=== PATIENT | male | born 1965 | race African-American/Black ===

== ENCOUNTER 2020-09-28 23:14 | Emergency (ER) | payer MEDICAID, SELFPAY ==
--- NOTE | 2020-09-28 23:23 | PC.NURSE ---
Pt became upset due to hospital policy of covid visitor restriction and due to the symptomology of his complaint, no visitors would be allowed to wait. laboratory asst aware. This story writer offered to take the phone number of manager clinic for chart. Both individuals refused.
[2020-09-28 23:25] VITALS: BP 123/58; PULSE 96; RESP 22; TEMP 37.5; O2SAT 98; BMI 28.4
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
--- NOTE | 2020-09-28 23:42 | XR_ITS ---
EXAMINATION: XR CHEST CLINICAL INFORMATION: Cough COMPARISON: 02/28/2011 TECHNIQUE: Frontal view of the chest was obtained. FINDINGS: The lungs are well expanded. Bronchial wall thickening. Patchy opacity at the left base. No pleural effusion or pneumothorax. The cardiomediastinal silhouette is within normal limits. XR/XR chest 1V IMPRESSION: Bronchial wall thickening can be seen with a small airways process such as asthma or atypical/viral infection. Left basilar opacity could represent superimposed atelectasis or pneumonia.
[2020-09-29] MEDS: predniSONE 20 MG TABLET 60 MG PO (00:24)
[2020-09-29] MEDS: Benzonatate 100 MG CAPSULE PO (00:24)
[2020-09-29] MEDS: Oxymetazoline HCl 0.05 % Nasal 15 ML SPRAY 2 SPRAY NOSTRIL-B (00:26)
--- NOTE | 2020-09-29 00:40 | PC.NURSE ---
pt was never in any respiratory distress, speaking in complete sentences. pt argumentative as to why his girlfriend was not allowed in treatment area. pt refused covid test.
== END 2020-09-29 01:01 | disposition home or self-care (01) ==
PROVIDERS: Emergency Provider Emergency Medicine; PCP Nurse Practitioner Primary Care
DX: J18.9 Pneumonia, unspecified organism (principal); B34.9 Viral infection, unspecified; J00 Acute nasopharyngitis [common cold]; J45.909 Unspecified asthma, uncomplicated; Z79.899 Other long term (current) drug therapy; Z87.891 Personal history of nicotine dependence
CPT/HCPCS: 71045; 99283

== ENCOUNTER → 2020-11-02 13:33 | Outpatient (BNVA) | payer MEDICAID, SELFPAY | PROVIDERS: PCP Nurse Practitioner Primary Care; Visit Provider Internal Medicine Pulmonary Disease | DX: J45.40 Moderate persistent asthma, uncomplicated (principal); Z88.0 Allergy status to penicillin; Z87.891 Personal history of nicotine dependence; Z91.09 Other allergy status, other than to drugs and biological substances | CPT/HCPCS: 99212 ==

== ENCOUNTER → 2021-03-27 15:51 | Outpatient (BNVA) | payer MEDICAID, SELFPAY | PROVIDERS: PCP Nurse Practitioner Primary Care; Visit Provider Internal Medicine Pulmonary Disease | DX: J45.40 Moderate persistent asthma, uncomplicated (principal); Z91.09 Other allergy status, other than to drugs and biological substances | CPT/HCPCS: 99212 ==

== ENCOUNTER 2024-11-23 16:44 | Outpatient (REF) | payer MEDICAID, SELFPAY ==
[2024-11-23 17:34] LABS: Creatinine Urine 403.64 mg/dL; Microalbum/Creatinine Ratio Ur 3.4 ug/mg cr (<30)
--- OUTSIDE RECORDS SUMMARY | 2024-11-23 19:48 | XMS_ITS | Encounter Summary ---
Author Organization [employer] Address [address] [facility] [address] [place] [address] Care Team Providers Care Gleason Gear Generator Name Role Phone Chelo Cast Primary Care Provider [phone] Encounter Details Date Type Department Care Team (Latest Contact Info) Description 11/23/2024 Travel Social History Tobacco Use Types Packs/Day Years Used Date Smoking Tobacco: Never Smokeless Tobacco: Never Alcohol Use Standard Drinks/Week Comments Not Currently 0 (1 standard drink = 0.6 oz pur e alcohol) Alcohol Answer Date Recorded Frequency of Alcohol Consumption Not on file 11/13/2023 Average Number of Drinks Not on file 024 Frequency of Binge Drinking Not on file 10/29 Score 0 11/13/2023 Depression Answer Date Recorded Patient Health Questionnaire-9 Score 3 11/23/2024 Patient Health Questionnaire-9 Score 3 11/23/2024 Last PHQ-9: Questionnaire Data Not on file 0 11/23/2024 Housing Stability Answer Date Recorded What is your housing situation today? I have scott mckeon 11/09/[address] you li ve. Do you have problems with any of the following? None of the above 11/09/2024 Food Insecurity Answer Date Recorded Within the past 12 months, y ou worried that your food would run out before you got money to buy more: Never True 11/09/2024 Within the past 12 months,th e food you bought just didn't last and you didn't have enough money to get more: Never True 08/2025 Transportation Answer Date Recorded In the past 12 months, has l ack of transportation kept you from medical appts, meetings, work or from getting things needed for daily living? No 11/09/2024 Utilities Answer Date Recorded In the past 12 months, has t he electric, gas, oil or water company threatened to shut off services in your home? No 11/09/2024 Depression Answer Date Recorded Patient Health Questionnaire-2 Score 0 11/23/2024 Internet Access Answer Date Recorded Internet Access Q1 Yes 11/09/2024 Internet Access Q2 Not on file 11/09/2024 Sex and Gender Information Value Date Recorded Sex Assigned at Male 07/28/2022 10:21 AM EDT Legal Sex Male 10:21 AM EDT Gender Identity Male 07/28/2022 10:21 AM EDT Sexual Orientation Choose not to disclose 2021 10:21 AM EDT documented as of this encounter Plan of Treatment Not on file documented as of this encounter Visit Diagnoses Not on filedocumented in this encounter Additional Health Concerns Assessment Noted Time PHQ-9 Depression Total Score: 3 11/23/19 25 2:39 PM EST documented as of this encounter Care Teams Gleason Gear Generator Relationship Specialty Start Date End Date Chelo Cast ANP [address] [place] [phone] PCP - General Family Medicine 02/08/20 documented as of this encounter
--- OUTSIDE RECORDS SUMMARY | 2024-11-23 19:48 | XMS_ITS | Encounter Summary ---
Author Organization [employer] Address [address] [place] [address] [address] [place] [address] Care Team Providers Care Police Worker Name Role Phone Chelo Cast Primary Care Provider [phone] Encounter Details Date Type Department Care Team ([facility] st Contact Info) Description 01/07/2023 Orders Only [facility] [address] [place] [address] Jayshree [place] LPN Social History Tobacco Use Types Packs/Day Years Used Date Smoking Tobacco: Never Assessed Sex and Gender Information Value Date Recorded Sex Assigned at Male 07/28/2022 10:21 AM EDT Legal Sex Male 10:21 AM EDT Gender Identity Male 07/28/2022 10:21 AM EDT Sexual Orientation Choose not to disclose 2021 10:21 AM EDT documented as of this encounter Plan of Treatment Not on file documented as of this encounter Visit Diagnoses Not on filedocumented in this encounter Care Teams Police Worker Relationship Specialty Start Date End Date Chelo Cast ANP [address] [place] [phone] PCP - General Family Medicine 02/08/20 documented as of this encounter
--- OUTSIDE RECORDS SUMMARY | 2024-11-23 19:48 | XMS_ITS | Clinical Summary ---
Author Organization [employer] Address [address] [place] [address] [address] [place] [address] Care Team Providers Care Preparation Department Supervisor Name Role Phone Chelo Cast Primary Care Provider [phone] Allergies Active Allergy Reactions Criticality Noted Date Comments Penicillin V Unknown 01/26/2020 Childhood allergy, rxn unk Medications loratadine (Claritin) 10 MG tabletIndicatio ns:Non-seasonal allergic rhinitis, unspecified trigger TAKE 1 TABLET BY MOUTH EVERY DAY 90 tablet 04/17/20 23 Active ipratropium-alb uterol (Duo-Neb) 0.5-2.5 mg/3 mL nebulizer solution INHALE 1 AMPULE USING A NEBULIZER EVERY 4 TO 6 HOURS NEEDED FOR WHEEZING 270 mL 6 07/20/20 23 Active Dupixent 300 MG/2ML solution prefilled syringe injection Inject 300 mg under the skin every 14 (fourteen) days. 11/03/19 24 Active Diclofenac Sodium (Voltaren) 1 % gelIndications: Acute pain of left knee Apply up to 4x/d to affected joint(s) for pain/swellin g 100 g 2 11/13/19 24 Active fluticasone (Flonase) 50 MCG/ACT nasal sprayIndication s:Non-seasonal allergic rhinitis due to other allergic trigger INSTILL 1-2 SPRAYS IN EACH NOSTRIL ONCE DAILY NEEDED FOR ALLERGIES 48 g 02/18/20 24 Active amLODIPine (Norvasc) 5 MG tablet TAKE 1 TABLET BY MOUTH EVERY DAY (for high blood pressure) 90 tablet 3 02/24/20 24 Active atorvastatin (Lipitor) 40 MG tablet TAKE 1 TABLET BY MOUTH EVERY DAY 90 tablet 3 03/07/20 24 Active montelukast (Singulair) 10 MG tablet TAKE 1 TABLET BY MOUTH EVERY EVENING FOR allergic asthma 90 tablet 3 03/07/20 24 Active Tudorza Pressair 400 MCG/ACT inhaler INHALE 1 PUFF BY MOUTH EVERY 12 HOURS (for COPD) 1 each 5 06/02/20 24 Active omeprazole (PriLOSEC) [address] capsuleIndicati ons:Gastroesoph ageal reflux disease, unspecified whether esophagitis present TAKE 1 CAPSULE BY MOUTH EVERY DAY BEFORE A MEAL 90 capsule 1 11/23/19 25 Active omeprazole (PriLOSEC) [address] capsuleIndicati ons:Gastroesoph ageal reflux disease, unspecified whether esophagitis present TAKE 1 CAPSULE BY MOUTH EVERY DAY BEFORE A MEAL 90 capsule 1 09/26/20 24 025 Discontinued(Re order (will not trigger notification to Pharmacy)) Active Problems Problem Noted Date Diagnosed Date Hyperlipidemia 10/01/2023 10/01/2023 Primary hypertension 10/01/2023 10/01/2023 Allergic bronchopulmonary aspergillosis 12/26/19 22 10/01/2023 Chronic recurrent sinusitis 12/25/2021 01/0 12/2023 Controlled moderate persistent allergic asthma 0 12/25/2021 10/01/2023 Sinusitis with nasal polyps 12/25/20210 12/2023 Encounters Date Type Department Care Team Description 11/23/2024 2:00 PM EST Office Visit [facility] [address] [place] [phone] Chelo Cast ANP Healthcare maintenance (Primary Dx); Screening PSA (prostate specific antigen); Screening for diabetes mellitus; Controlled moderate persistent allergic asthma; Primary hypertension; Gastroesophageal reflux disease, unspecified whether esophagitis present; Other hyperlipidemia 11/23/2024 Travel 11/18/2024 Telephone [facility] [address] [place] [address] [phone] Nani Murrieta MA chart prep 11/09/2024 Patient Outreach [facility] [address] [place] [address] [phone] Chelo Cast ANP Pre-visit Planning (SDOH Screening negative and Tobacco screening negative) 09/26/[address] [phone] Jaun Reagan [place] October recall 09/26/2024 Refill [facility] [address] [place] [address] Chelo Cast, GAYLE Gastroesophageal reflux disease, unspecified whether esophagitis present from Last 3 Months Immunizations Name Administration Dates Next Due Hep A, Adult 09/10/2013,03/13/2013 Hep B, adult 09/10/2013,03/13/2013,10/24/2012 Influenza, IIV3, injectable 07/26/2015 Influenza, intradermal, quad rivalent, preservative free 07/26/2015 MMR 10/20/2015 Pneumococcal Conjugate PCV 20 11/13/2023 Pneumococcal Polysaccharide PPSV23 10/20/2015 Tdap 11/02/2020 Social History Tobacco Use Types Packs/Day Years Used Date Smoking Tobacco: Never Smokeless Tobacco: Never Tobacco Cessation:Counseling Given: Not Answered Alcohol Use Standard Drinks/Week Comments Not Currently [...] not to disclose 2021 10:21 AM EDT Last Filed Vital Signs Vital Sign Reading Time Taken Comments Blood Pressure 125/73 11/23/2024 1:59 PM EST Pulse 54 11/23/2024 1:59 PM EST Temperature 36.4 ??C (97.6 ??F) 11/23/2024 1:59 PM ES T Respiratory Rate 14 11/23/2024 1:59 PM EST Oxygen Saturation 98% 11/23/2024 1:59 PM EST Inhaled Oxygen Concentration - - Weight 86.7 kg (191 lb 3.2 oz) 11/23/2024 1:59 P M EST Height 167.6 cm (5' 6 ) 05/16/2024 11:07 AM EDT Body Mass Index 30.86 05/16/2024 11:07 AM EDT Plan of Treatment Health Maintenance Due Date Last Done Comments CT Colonography 1964 Colonoscopy 1964 FIT 1964 FOBT 1964 HIV Screening 1964 Sigmoidoscopy 1964 Hepatitis C Screening 1982 Zoster Vaccines (1 of 2) 2014 RSV Patients and Patients Aged 60 years or older (1 - Risk 60-74 years 1-dose series) 2024 Influenza Vaccine (#1) 2025 5, 07/26/2015 Postponed from 05/29/2024 (Patient Refused) SDOH Screening 11/09/2025 11/09/2024 Alcohol/Substance Use Screening 11/23/2025 11/23/2024 COVID-19 Vaccine (1 - 2023-2 5 season) 2025 Postponed from 05/29 (Patient Refused) Depression Screening 11/23/2025 11/23/2024, 11/23/2024 Tobacco Screening 11/23/2025 11/23/2024 Colorectal Cancer Screening 11/25/2026 FIT DNA/Cologuard 11/25/2026 11/26/2023 Lipid Panel 12/25/2026 12/25/2021 DTaP/Tdap/Td Vaccines (2 - T d or Tdap) 11/02/2030 11/02/2020 Hepatitis A Vaccines Aged Out 09/10/2013, 03/13/2013 No longer eligible based on patient's age to complete this topic Hepatitis B Vaccines Completed 09/10/2013, 03/13/2013, 10/24/2012 Pneumococcal Vaccine: 50+ Years Completed 11/13/2023, 10/20/2015 HIB Vaccines Aged Out No longer eligi ble based on patient's age to complete this topic HPV Vaccines Aged Out No longer eligi ble based on patient's age to complete this topic IPV Vaccines Aged Out No longer eligi ble based on patient's age to complete this topic Meningococcal Vaccine Aged Out No fei joey eligible based on patient's age to complete this topic RSV under 20 months Aged Out No longe r eligible based on patient's age to complete this topic Rotavirus Vaccines Aged Out No longer eligible based on patient's age to complete this topic Procedures Procedure Name Priority Date/Time Associated Diagnosis Comments ALBUMIN, RANDOM URINE W/CREATININE Routine 11/23/2024 2:36 PM EST Primary hypertension LAB COLOGUARD?? COLON CANCER SCREEN Routine 11/26/2023 4:30 AM EST Screening for malignant neoplasm of colon LIPID PANEL, STANDARD Routine 12/25/2021 4:35 PM EDT from Last 3 Months or Most Recently Relevant to Health Maintenance Results * Albumin, Random Urine W/Creatinine (11/23/2024 2:36 PM EST) Creatinine, Urine 403.64 mg/dL [facility] Microalbumin Urine 14.0 mg/L [facility] Microalbum Creatinine Ratio Ur 3.4 <30 ug/mg cr [facility] Comment:Albumin/Creatinine R atio Reference Ranges: Normal: < 30 ug/mg creatinine Microalbuminuria: 30 - 300 ug/mg creatinineClinical Albuminuria: > 300 ug/mg creatinine Urine (Urine, Random) 11/23/2024 2:36 PM EST 11/23/2024 4:45 PM EST [facility] Cast [facility] LAB URINE ORDERABLES Final Resul t Performing Organization Address City/State/[facility] Co de Phone Number [facility] [address] [place] [phone] * Cologuard?? colon cancer screening (11/26/2023 4:30 AM EST) Cologuard Result Negative Negative 12/05/19 10:26 PM EST [facility] (CLIA #:[id number]) Comment: NEGATIVE TEST RESULT. A negative Cologuard result indicates a low likelihood that a colorectal cancer (CRC) or advanced adenoma (adenomatous polyps with more advanced pre-malignant features) ??is present. The chance that a person with a negative Cologuard test has a colorectal cancer is less than 1 in 1500 (negative predictive value >99.9%) or has an ??advanced adenoma is less than ??5.3% (negative predictive value 94.7%). These data are based on a prospective cross-sectional study of 10,000 individuals at average risk for colorectal cancer who were screened with both Cologuard and colonoscopy. (Umair Freeman et al, N Engl J Med 2014;370(14):1286- 1297) The normal value (reference range) for this assay is negative. COLOGUARD RE-SCREENING RECOMMENDATION: Periodic colorectal cancer screening is an important part of preventive healthcare for asymptomatic individuals at average risk for colorectal cancer. ??Following a negative Cologuard result, the [place] Cancer Society and U.S. Multi-Society Task Force screening guidelines recommend a Cologuard re-screening interval of 3 years. References: [place] [employer] Guideline for Colorectal Cancer Screening: https://www.cancer.org/cancer/jhgnu-poqvlk-wrzmqa/wwjquuuww-qkrtuthjv-lednkxw/ac s-rec ommendations.html.; Brijesh DK, Rohan BEAR, Kavita BAILEY, Colorectal Cancer Screening: Recommendations for Physicians and Patients from the U.S. Multi-Society Task Force on Colorectal Cancer Screening , Am J Gastroenterology 2017; 112:2255-1520. TEST DESCRIPTION: Composite algorithmic analysis of stool DNA-biomarkers with hemoglobin immunoassay. ?? Quantitative values of individual biomarkers are not reportable and are not associated with individual biomarker result reference ranges. Cologuard is intended for colorectal cancer screening of adults of either sex, 45 years or older, who are at average-risk for colorectal cancer (CRC). Cologuard has been approved for use by the U.S. FDA. The performance of Cologuard was established in a cross sectional study of average-risk adults aged 50-84. Cologuard performance in patients ages 45 to 49 years was estimated by sub-group analysis of near-age groups. Colonoscopies performed for a positive result may find as the most clinically significant lesion: colorectal cancer [4.0%], advanced adenoma (including sessile serrated polyps greater than or equal to 1cm diameter) [20%] or non- advanced adenoma [31%]; or no colorectal neoplasia [45%]. These estimates are derived from a prospective cross-sectional screening study of 10,000 individuals at average risk for colorectal cancer who were screened with both Cologuard and colonoscopy. (Umair Fernandes al, N Engl J Med 2014;370(14):5373-4089.) Cologuard may produce a false negative or false positive result (no colorectal cancer or precancerous polyp present at colonoscopy follow up). A negative Cologuard test result does not guarantee the absence of CRC or advanced adenoma (pre-cancer). The current Cologuard screening interval is every 3 years. ([place] [employer] Society and U.S. Multi-Society Task Force). Cologuard performance data in a 10,000 patient pivotal study using colonoscopy as the reference method can be accessed at the following location: www.[employer].CPA Exchange/results. Additional description of the Cologuard test process, warnings and precautions can be found at www.Invested.inrd.com. Stool specimen (specimen) 11/26/2023 4:30 AM EST 11/27/2023 11:01 AM EST us Chelo Cast [facility] ORDERA BLES Final Result [facility] (CLIA #:[id number]) [place] [address], * LIPID PANEL, STANDARD (12/25/2021 4:35 PM EDT) Chol/HDLC Ratio 2.6 <5.0 (calc) [facility] Cholesterol, Total 124 <200 mg/dL [facility] HDL Cholesterol 48 > OR = 40 mg/dL [facility] LDL Cholesterol 59 mg/dL (calc) [facility] Comment: Reference range: <100 ?? Desirable range <100 mg/dL for primary prevention; ?? <70 mg/dL for patients with CHD or diabetic patients ?? with > or = 2 CHD risk factors. ?? LDL-C is now calculated using the Lucrecia ?? calculation, which is a validated novel method providing ?? better accuracy than the Friedewald equation in the ?? estimation of LDL-C. ?? Marvin GIBBONS et al. CLAUDE. 2013;310(19): 8654-2383 ?? (http://education.Sportlyzer/faq/VBK680) Non-HDL Cholesterol 76 <130 mg/dL (calc) [facility] Comment: For patients with diabetes plus 1 major ASCVD risk ?? factor, treating to a non-HDL-C goal of <100 mg/dL ?? (LDL-C of <70 mg/dL) is considered a therapeutic ?? option. Triglycerides 89 <150 mg/dL [facility] 12/25/2021 4:35 PM EDT Chelo Cast [facility] LAB BLOOD ORDERABLES Final Resul t Performing Organization Address [facility]/ZIP Co de Phone Number [facility] [address] from Last 3 Months or Most Recently Relevant to Health Maintenance Insurance [facility] C3 HSN FULL Care Teams Preparation Department Supervisor Relationship Specialty Start Date End Date Chelo Cast ANP [address] [place] [phone] PCP - General Family Medicine 02/08/20
--- OUTSIDE RECORDS SUMMARY | 2024-11-23 19:48 | XMS_ITS | Encounter Summary ---
Author Organization [employer] Address [address] [place] [address] 7[address] [place] [address] Care Team Providers Care Motor Tester Name Role Phone Chelo Cast GAYLE Primary Care Provider [phone] Reason for Visit * Reason Onset Date Comments chart prep 11/18/2024 Encounter Details Date Type Department Care Team (Late st Contact Info) Description 11/18/2024 Telephone [facility] [address] [place] [address] Nani Murrieta MA chart prep Social History Tobacco Use Types Packs/Day Years [...] Answer Date Recorded Patient Health Questionnaire-9 Score 0 11/13/2023 Patient Health Questionnaire-9 Score 0 11/13/2023 Last PHQ-9: Questionnaire Data Not on file 0 11/13/2023 Housing Stability Answer Date Recorded What is [...] Date Recorded Patient Health Questionnaire-2 Score 0 11/13/2023 Internet Access Answer Date Recorded Internet Access Q1 Yes 11/09/2024 Internet Access Q2 Not on file 11/09/2024 Sex and Gender Information Value Date Recorded Sex Assigned at Male 07/28/2022 10:21 AM EDT Legal Sex Male 10:21 AM EDT Gender Identity Male 07/28/2022 10:21 AM EDT Sexual Orientation Choose not to disclose 2021 10:21 AM EDT documented as of this encounter Miscellaneous Notes * Telephone Encounter - Nani Murrieta MA - 11/18/2024 11:04 AM EST Chart Prep Labs: done Images: done Vaccines due: yes Referrals: none Screenings: none Overdue care gaps: Sbirt, PHQ-9 documented in this encounter Plan of Treatment Not on file documented as of this encounter Visit Diagnoses Not on filedocumented in this encounter Additional Health Concerns Assessment Noted Time PHQ-9 Depression Total Score: 0 11/13/19 24 9:41 AM EST documented as of this encounter Care Teams Motor Tester Relationship Specialty Start Date End Date Chelo Cast ANP [address] [place] [address] PCP - General Family Medicine 02/08/20 documented as of this encounter
--- OUTSIDE RECORDS SUMMARY | 2024-11-23 19:48 | XMS_ITS | Encounter Summary ---
Author Organization [employer] Address [address] [place] [address] 7[address] [place] [address] Care Team Providers Care Lead Fire Protection Engineer Name Role Phone Chelo Cast Primary Care Provider [phone] Reason for Referral * Consultation (Routine) - Authorized Specialty Diagnoses / Procedures Referred By Asher lakhani Referred To Contact Optometry Diagnoses Primary hypertension Chelo Cast ANP [address] [place] [address] Phone: tel: fax: [facility] [address] [place] [address] Phone: tel: fax: Referral ID Status Reason Start Date Expiration Date Visits Requested Visits Authorized [id number] Authorized Consult and Treat 11/23/2024 11/23/2025 1 1 Reason for Visit * Reason Comments Annual Exam Encounter Details Date Type Department Care Team (Latest Contact Info) Description 11/23/2024 2:00 PM EST Office Visit [facility] MEDICINE [address] [place] [address] Chelo Cast ANP [address] [place] [address] Healthcare maintenance (Primary Dx); Screening PSA (prostate specific antigen); Screening for diabetes mellitus; Controlled moderate persistent allergic asthma; Primary hypertension; Gastroesophageal reflux disease, unspecified whether esophagitis present; Other hyperlipidemia Social History Tobacco Use Types Packs/Day Years [...] AM EDT documented as of this encounter Last Filed Vital Signs Vital Sign Reading [...] oz) 11/23/2024 1:59 P M EST Height - - Body Mass Index 30.86 05/16/2024 11:07 AM EDT documented in this encounter Progress Notes * GAYLE Espinoza - 11/23/2024 2:00 PM EST SUBJECTIVE: Lev Penaloza is a 59 y.o. year old male who presents for routine physical exam. Denies recent illness, injury, or hospitalization. PMH allergic asthma, HTN, recurrent sinusitis, HLD Acute Concerns: Asthma: stable on dupixent, Tudorza, Singulair, and PRN albuterol. Follows with: [facility] pulmonology. Also getting allergy shots every month. HTN: stable on amlodipine. Does need refill on omeprazole. Has been having difficulty filling at pharmacy. Will self refer for dental - needs new dentures. Non-smoker Cologuard negative 11/26/23 PSA ordered, not yet obtained Lives with long-term AFAB partner Social History Social History Narrative Not on file Patient Active Problem List Diagnosis Allergic bronchopulmonary aspergillosis (CMS/HCC) Chronic recurrent sinusitis Controlled moderate persistent allergic asthma Hyperlipidemia Primary hypertension Sinusitis with nasal polyps History reviewed. No pertinent surgical history. No family history on file. Review of Systems Constitutional: Negative for chills and fever. HENT: Negative for sore throat. Respiratory: Negative for cough and shortness of breath. Cardiovascular: Negative for chest pain. Gastrointestinal: Negative for constipation and diarrhea. Endocrine: Negative for polydipsia, polyphagia and polyuria. Genitourinary: Negative for difficulty urinating, dysuria, frequency and hematuria. Musculoskeletal: Negative for back pain. Neurological: Negative for weakness. Psychiatric/Behavioral: Negative for sleep disturbance. OBJECTIVE: Vitals: 11/23/24 1359 BP: 125/73 BP Location: Right arm Patient Position: Sitting BP Cuff Size: Adult Pulse: 54 Resp: 14 Temp: 97.6 ??F (36.4 ??C) TempSrc: Temporal SpO2: 98% Weight: 191 lb 3.2 oz (86.7 kg) Physical Exam Vitals reviewed. Constitutional: Appearance: Normal appearance. HENT: Head: Normocephalic and atraumatic. Right Ear: Tympanic membrane and ear canal normal. Left Ear: Tympanic membrane and ear canal normal. Eyes: General: No scleral icterus. Extraocular Movements: Extraocular movements intact. Pupils: Pupils are equal, round, and reactive to light. Cardiovascular: Rate and Rhythm: Normal rate and regular rhythm. Heart sounds: Normal heart sounds. No murmur heard. Pulmonary: Effort: Pulmonary effort is normal. Breath sounds: Normal breath sounds. No wheezing. Abdominal: General: Bowel sounds are normal. Palpations: Abdomen is soft. Tenderness: There is no abdominal tenderness. Skin: General: Skin is warm and dry. Neurological: Mental Status: He is alert and oriented to person, place, and time. Psychiatric: Mood and Affect: Mood normal. ASSESSMENT/PLAN Lev was seen today for annual exam. Diagnoses and all orders for this visit: Healthcare maintenance (Primary) Overall Mr. Penaloza is doing very well. His asthma is well-controlled. He eats a clean diet, mostly pescatarian, and exercises at the gym regularly. Lives with AFAB partner. Declines STI and repeat HCVtesting. Reports he did get the shingles vaccine he believes at the pharmacy here. I gave him information about the RSV vaccine in case he is interested in getting it at some point. Declines today. Declines COVID and flu shot. Hyperlipidemia Cont atorvastatin 40mg, heart healthy diet and regular exercise - Lipid Panel, Standard; Future - CMP Screening PSA (prostate specific antigen) Declines PSA screening today after shared decision making. He would let me know if he develops any urinary symptoms and we can revisit. Screening for diabetes mellitus - Hemoglobin A1c; Future Controlled moderate persistent allergic asthma Doing well with current plan. stable on dupixent, Tudorza, Singulair, and PRN albuterol. Will request updated visit notes from [facility] pulmonology. Avoid asthma triggers if possible. Continue albuterol q4-6 hrs PRN wheezing/SOB. Let us know if using albuterol >2x/wk. Primary hypertension At/near goal today, </= 130/80. Continue to encourage low salt diet, regular exercise, home BP monitoring, compliance with medications. Call clinic if BP is frequently >150/90 Go to ED/call 911 if > 170/100 and having sx such as POWER, visual changes, chest pain, SOB Last renal function: Lab Results Component Value Date BUN 12 12/25/2021 Lab Results Component Value Date MICROALBCREA 2 12/25/2021 No results found for: MICROALBCREU Check electrolytes and urine albumin. Will place referral to eye care for CARLY. - Comprehensive Metabolic Panel; Future - Albumin, Random Urine W/Creatinine Gastroesophageal reflux disease, unspecified whether esophagitis present Refilled: - omeprazole (PriLOSEC) [address] capsule; TAKE 1 CAPSULE BY MOUTH EVERY DAY BEFORE A MEAL Follow Up: PE 1 yr, sooner visit prn Current Outpatient Medications on File Prior to Visit Medication Sig Dispense Refill amLODIPine (Norvasc) 5 MG tablet TAKE 1 TABLET BY MOUTH EVERY DAY (for high blood pressure) 90 tablet 3 atorvastatin (Lipitor) 40 MG tablet TAKE 1 TABLET BY MOUTH EVERY DAY 90 tablet 3 Diclofenac Sodium (Voltaren) 1 % gel Apply up to 4x/d to affected joint(s) for pain/swelling 100 g 2 Dupixent 300 MG/2ML solution prefilled syringe injection Inject 300 mg under the skin every 14 (fourteen) days. fluticasone (Flonase) 50 MCG/ACT nasal spray INSTILL 1-2 SPRAYS IN EACH NOSTRIL ONCE DAILY NEEDED FOR ALLERGIES 48 g 0 ipratropium-albuterol (Duo-Neb) 0.5-2.5 mg/3 mL nebulizer solution INHALE 1 AMPULE USING A NEBULIZER EVERY 4 TO 6 HOURS NEEDED FOR WHEEZING 270 mL 6 loratadine (Claritin) 10 MG tablet TAKE 1 TABLET BY MOUTH EVERY DAY 90 tablet 0 montelukast (Singulair) 10 MG tablet TAKE 1 TABLET BY MOUTH EVERY EVENING FOR allergic asthma 90 tablet 3 Tudorza Pressair 400 MCG/ACT inhaler INHALE 1 PUFF BY MOUTH EVERY 12 HOURS (for COPD) 1 each 5 [DISCONTINUED] omeprazole (PriLOSEC) [address] capsule TAKE 1 CAPSULE BY MOUTH EVERY DAY BEFORE A MEAL 90 capsule 1 No current facility-administered medications on file prior to visit. documented in this encounter Plan of Treatment Scheduled Orders Name Type Priority Associated Diagnoses Orde r Schedule Lipid Panel, Standard Lab Routine Other hyperlipidemia Expected: 11/23/2024 (Approximate), Expires: 11/23/2025 Comprehensive Metabolic Panel Lab Routine Primary hypertension Expected: 11/23/2024 (Approximate), Expires: 11/23/2025 Hemoglobin A1c Lab Routine Screening for diabetes mellitus Expected: 11/23/2024 (Approximate), Expires: 11/23/2025 Scheduled Referrals Name Type Priority Associated Diagnoses Orde r Schedule Referral to [facility] Eye Care Outpatient Referral Routine Primary hypertension Expected: 11/23/2024 (Approximate), Expires: 11/23/2025 documented as of this encounter Procedures Procedure Name Priority Date/Time Associated Diagnosis Comments ALBUMIN, RANDOM URINE W/CREATININE Routine 11/23/2024 2:36 PM EST Primary hypertension documented in this encounter Results * Albumin, Random Urine W/Creatinine (11/23/2024 2:36 PM EST) Creatinine, Urine 403.64 mg/dL [facility] Microalbumin Urine 14.0 mg/L [facility] Microalbum Creatinine Ratio Ur 3.4 <30 ug/mg cr [facility] Comment:Albumin/Creatinine R atio Reference Ranges: Normal: < 30 ug/mg creatinine Microalbuminuria: 30 - 300 ug/mg creatinineClinical Albuminuria: > 300 ug/mg creatinine Urine (Urine, Random) 11/23/2024 2:36 PM EST 11/23/2024 4:45 PM EST us Chelo ARAUJO LAB URINE ORDERABLES Final Resul t [facility] [address] [place] [phone] documented in this encounter Visit Diagnoses Diagnosis Healthcare maintenance- Primary Screening PSA (prostate specific antigen) Special screening for malignant neoplasm of prostate Screening for diabetes mellitus Controlled moderate persistent allergic asthma Primary hypertension Unspecified essential hypertension Gastroesophageal reflux disease, unspecified whether esophagitis present Other hyperlipidemia documented in this encounter Additional Health Concerns Assessment Noted Time PHQ-9 Depression Total Score: 3 11/23/19 25 2:39 PM EST documented as of this encounter Care Teams Lead Fire Protection Engineer Relationship Specialty Start Date End Date Chelo Cast ANP [address] [place] [address] PCP - General Family Medicine 02/08/20 documented as of this encounter
--- OUTSIDE RECORDS SUMMARY | 2024-11-23 19:48 | XMS_ITS | Encounter Summary ---
Author Organization [employer] Address [address] [facility] 7 [place] [address] Care Team Providers Care Fence Rider Name Role Phone Chelo Cast Primary Care Provider [phone] Reason for Visit * Reason Comments Pre-visit Planning SDOH Screening negat jannie and Tobacco screening negative Encounter Details Date Type Department Care Team ([facility] st Contact Info) Description 11/09/2024 Patient Outreach [facility]INE [address] [place] [address] Chelo Cast ANP [address] [place] [address] Pre-visit Planning (SDOH Screening negative and Tobacco screening negative) Social History Tobacco Use Types Packs/Day Years [...] AM EDT documented as of this encounter Progress Notes * Jenna Bobby - 11/09/2024 1:13 PM EST JAC Corado placed successful outbound call to patient for pre-visit planning. Patient name and confirmed. Patient confirms appt date and time, and has transportation arrangements. Biggest concern for appointment at this time is no concerns. Patient advised to bring to appointment a photo id and insurance card. Appropriate screenings completed in anticipation of appointment. documented in this encounter Plan of Treatment Not on file documented as of this encounter Visit Diagnoses Not on filedocumented in this encounter Additional Health Concerns Assessment Noted Time PHQ-9 Depression Total Score: 0 11/13/19 24 9:41 AM EST documented as of this encounter Care Teams Fence Rider Relationship Specialty Start Date End Date Chelo Cast ANP [address] [place] [address] PCP - General Family Medicine 02/08/20 documented as of this encounter
--- OUTSIDE RECORDS SUMMARY | 2024-11-23 19:48 | XMS_ITS | Encounter Summary ---
Author Organization [employer] Address [address] [place] [address] [address] [place] [address] Care Team Providers Care Tractor Trailer Driver Name Role Phone Chelo Cast Primary Care Provider [phone] Encounter Details Date Type Department Care Team (Late st Contact Info) Description 12/19/[address] [facility] [address] [place] [address] Amy Helton LPN Social History Tobacco Use Types Packs/Day [...] on filedocumented in this encounter Care Teams Tractor Trailer Driver Relationship Specialty Start Date End Date Chelo Cast ANP [address] [place] [address] PCP - General Family Medicine 02/08/20 documented as of this encounter
--- OUTSIDE RECORDS SUMMARY | 2024-11-23 19:48 | XMS_ITS | Encounter Summary ---
Author Organization [employer] Address [address] [place] [address] [address] [place] [address] Care Team Providers Care Conductor/Brakeman Name Role Phone Chelo Cast Primary Care Provider [phone] Encounter Details Date Type Department Care Team (Late st Contact Info) Description 10/02/2022 Orders Only [facility] MED & PEDS [address] [place] [address] Jayshree Greenfield LPN Social History Tobacco Use [...] on filedocumented in this encounter Care Teams Conductor/Brakeman Relationship Specialty Start Date End Date Chelo Cast ANP [address] [place] [address] PCP - General Family Medicine 02/08/20 documented as of this encounter
--- OUTSIDE RECORDS SUMMARY | 2024-11-23 19:49 | XMS_ITS | Encounter Summary ---
Author Organization [employer] Address [address] [place] [address] 7t [place] [address] Care Team Providers Care Manifest/Order Organizer Print Orders Name Role Phone Chelo Cast Primary Care Provider [phone] Reason for Visit * Reason Onset Date Comments Med Refill 07/13/2023 Encounter Details Date Type Department Care Team (Late st Contact Info) Description 07/13/2023 Telephone [facility] [address] [place] [address] Chelo Cast ANP [address] [place] [address] Med Refill Social History Tobacco Use Types Packs/Day Years Used Date Smoking Tobacco: Never Assessed Sex and Gender Information Value Date Recorded Sex Assigned at Male 07/28/2022 10:21 AM EDT Legal Sex Male 10:21 AM EDT Gender Identity Male 07/28/2022 10:21 AM EDT Sexual Orientation Choose not to disclose 2021 10:21 AM EDT documented as of this encounter Miscellaneous Notes * Telephone Encounter - Jayshree Greenfield LPN - 07/13/2023 1:11 PM EDT Medication is prescribed elsewhere. * Telephone Encounter - Mei Painting - 07/13/2023 12:53 PM EDT Tc from pt requesting medication refill on ipratropium 0.5 mg-albuterol 3 mg (2.5 mg base)/3 mL nebulization soln to be sent to [facility] [place] [place] [facility] [address] [facility] documented in this encounter Plan of Treatment Not on file documented as of this encounter Visit Diagnoses Not on filedocumented in this encounter Care Teams Manifest/Order Organizer Print Orders Relationship Specialty Start Date End Date Chelo Cast ANP [address] [facility] [place] [address] PCP - General Family Medicine 02/08/20 documented as of this encounter
--- OUTSIDE RECORDS SUMMARY | 2024-11-23 19:49 | XMS_ITS | Encounter Summary ---
Author Organization [employer] Address [address] [place] [address] [address] [place] [address] Care Team Providers Care Crossing Supervisor Name Role Phone Chelo Cast Primary Care Provider [phone] Encounter Details Date Type Department Care Team ([facility] st Contact Info) Description 03/03/2023 Orders Only [facility] MED & PEDS [address] [place] [address] Jayshree Greenfield LPN Social History Tobacco Use [...] on filedocumented in this encounter Care Teams Crossing Supervisor Relationship Specialty Start Date End Date Chelo Cast ANP [address] [place] [address] PCP - General Family Medicine 02/08/20 documented as of this encounter
--- OUTSIDE RECORDS SUMMARY | 2024-11-23 19:49 | XMS_ITS | Encounter Summary ---
Author Organization [employer] Address [address] [place] [address] [address] [place] [address] Care Team Providers Care Learning Program Manager Name Role Phone Chelo Cast Primary Care Provider [phone] Encounter Details Date Type Department Care Team (Late st Contact Info) Description 03/02/2023 Orders Only [facility] MEDICINE [address] [place] [address] Amy Helton LPN Social History Tobacco Use [...] on filedocumented in this encounter Care Teams Learning Program Manager Relationship Specialty Start Date End Date Chleo Cast ANP [address] [place] [address] PCP - General Family Medicine 02/08/20 documented as of this encounter
--- OUTSIDE RECORDS SUMMARY | 2024-11-23 19:49 | XMS_ITS | Encounter Summary ---
Author Organization [employer] Address [address] [place] [address] [address]t [place] [address] Care Team Providers Care Edgerman Name Role Phone Chelo Cast Primary Care Provider [phone] Reason for Visit * Reason Onset Date Comments Med Refill 06/18/2023 Encounter Details Date Type Department Care Team (Late st Contact Info) Description 06/18/2023 Telephone [facility] MEDICINE [address] [place] [address] Chelo Cast ANP [address] [place] [address] Med Refill Social History Tobacco Use Types [...] Telephone Encounter - Jayshree Greenfield LPN - 06/18/2023 1:03 PM EDT 90 day supply was sent to [facility] on 04/17/23. * Telephone Encounter - Renita Lopez - 06/18/2023 12:18 PM EDT Tc from patient requesting a med refill on medication loratadine (Claritin) [address] Cast documented in this encounter Plan of Treatment Not on file documented as of this encounter Visit Diagnoses Not on filedocumented in this encounter Care Teams Edgerman Relationship Specialty Start Date End Date Chelo Cast ANP [address] [place] [address] PCP - General Family Medicine 02/08/20 documented as of this encounter
--- OUTSIDE RECORDS SUMMARY | 2024-11-23 19:49 | XMS_ITS | Encounter Summary ---
Author Organization [employer] Address [address] [place] [address] 7[address] [place] [address] Care Team Providers Care Administrative And Program Specialist Name Role Phone Chelo Cast Primary Care Provider [phone] Reason for Visit * Reason Comments Med Refill Encounter Details Date Type Department Care Team (Late st Contact Info) Description 06/16/2023 Refill [facility] MED & PEDS [address] [place] [address] Chelo Cast ANP [address] [place] [address] Non-seasonal allergic rhinitis due to other allergic trigger Social History Tobacco Use Types Packs/Day Years [...] documented as of this encounter Visit Diagnoses Diagnosis Non-seasonal allergic rhinitis due to other allergic trigger documented in this encounter Care Teams Administrative And Program Specialist Relationship Specialty Start Date End Date Chelo Cast ANP [address] [place] [address] PCP - General Family Medicine 02/08/20 documented as of this encounter
--- OUTSIDE RECORDS SUMMARY | 2024-11-23 19:49 | XMS_ITS | Encounter Summary ---
Author Organization [employer] Address [address] [place] [address] [address] [place] [address] Care Team Providers Care Educational Program Assistant Name Role Phone Chelo Cast Primary Care Provider [phone] Reason for Visit * Reason Comments Med Refill Encounter Details Date Type Department Care Team (Late st Contact Info) Description 03/04/2023 Refill [facility] MED & PEDS [address] [place], [place] [id number] Name, MD Rico [address] [place] [address] Social History Tobacco Use Types Packs/Day Years [...] on filedocumented in this encounter Care Teams Educational Program Assistant Relationship Specialty Start Date End Date Chelo Cast ANP [address] [place] [address] PCP - General Family Medicine 02/08/20 documented as of this encounter
--- OUTSIDE RECORDS SUMMARY | 2024-11-23 19:49 | XMS_ITS | Encounter Summary ---
Author Organization [employer] Address [address] [place] [address] [address] [place] [address] Care Team Providers Care Farmworker General Name Role Phone Chelo Cast Primary Care Provider [phone] Reason for Visit * Reason Comments Med Refill Encounter Details Date Type Department Care Team (Late st Contact Info) Description 03/03/2023 Refill [facility] MED & PEDS [address] [place], [place] [id number] Name, MD Rico [address] [place] [address] Social History Tobacco Use Types Packs/Day Years [...] on filedocumented in this encounter Care Teams Farmworker General Relationship Specialty Start Date End Date Chelo Cast ANP [address] [place] [address] PCP - General Family Medicine 02/08/20 documented as of this encounter
== END 2024-11-23 16:45 | disposition home or self-care (01) ==
LOC: HO.HHCLNP 16:44
PROVIDERS: Visit Provider Nurse Practitioner Primary Care
DX: I10 Essential (primary) hypertension (principal)
CPT/HCPCS: 82043; 82570